=== PATIENT | female | born 1940 | race Caucasian/White ===

== ENCOUNTER 2018-05-14 12:12 | Emergency (ER) | payer MEDICARE ==
[2018-05-14] MEDS ORDERED: ASPIRIN 81 MG TABLET, CHEWABLE PO ONE (13:53)
--- NOTE | 2018-05-14 13:54 | ER Document Report ---
ED Medical Screen (RME) - General Chief Complaint: Chest Pain Stated Complaint: CHEST PAIN Time Seen by Provider: 05/14/18 13:44 Notes: 6 years old female presents today with a history of dementia, chest pain shortness of breath dizziness for the last few days. According to her son. On examination-unremarkable. - Related Data Allergies/Adverse Reactions: No Known Allergies Allergy (Unverified 05/14/18 12:19) Past Medical History - Social History Chew tobacco use (# tins/day): No Frequency of alcohol use: None Drug Abuse: None Renal/ Medical History: Denies: Hx Peritoneal Dialysis Physical Exam - Vital signs Vitals: Temp Pulse Resp BP Pulse Ox 97.3 F 57 L 16 119/43 L 99 05/14/18 12:37 05/14/18 12:37 05/14/18 12:37 05/14/18 12:37 05/14/18 12:37 Course - Vital Signs Vital signs: Temp Pulse Resp BP Pulse Ox 97.3 F 57 L 16 119/43 L 99 05/14/18 12:37 05/14/18 12:37 05/14/18 12:37 05/14/18 12:37 05/14/18 12:37
--- NOTE | 2018-05-14 14:30 | RADIOLOGY REPORT (SQ) ---
EXAM DESCRIPTION: CHEST SINGLE VIEW COMPLETED DATE/TIME: 05/14/2018 2:20 pm REASON FOR STUDY: Chest pain COMPARISON: None. EXAM PARAMETERS: NUMBER OF VIEWS: One view. TECHNIQUE: Single frontal radiographic view of the chest acquired. RADIATION DOSE: NA LIMITATIONS: None. FINDINGS: LUNGS AND PLEURA: No opacities, masses or pneumothorax. No pleural effusion. MEDIASTINUM AND HILAR STRUCTURES: No masses. Contour normal. HEART AND VASCULAR STRUCTURES: Heart normal in size. Normal vasculature. BONES: No acute findings. HARDWARE: None in the chest. OTHER: No other significant finding. IMPRESSION: NO ACUTE RADIOGRAPHIC FINDING IN THE CHEST. TECHNICAL DOCUMENTATION: JOB ID: [id number] [employer]- All Rights Reserved Reading location - IP/workstation name: [email or web address]
[2018-05-14 14:55] LABS: ABSOLUTE LYMPHOCYTES (AUTO) 1.7 10^3/uL (0.5-4.7); ABSOLUTE MONOCYTES (AUTO) 0.8 10^3/uL (0.1-1.4); ABSOLUTE NEUT (AUTO) 7.8 10^3/uL (1.7-8.2); BASOPHILS % (AUTO) 0.3 % (0-2); EOSINOPHILS % (AUTO) 0.4 % (0-6); HEMATOCRIT 41.5 % (36.0-47.0); HEMOGLOBIN 14.2 g/dL (12.0-15.5); LYMPHOCYTES % (AUTO) 16.6 % (13-45); MEAN CORPUSCULAR HEMOGLOBIN 28.7 pg (27.0-33.4); MEAN CORPUSCULAR HGB CONC 34.1 g/dL (32.0-36.0); MEAN CORPUSCULAR VOLUME 84 fl (80-97); MONOCYTES % (AUTO) 7.7 % (3-13); PLATELET COUNT 271 10^3/uL (150-450); RED BLOOD COUNT 4.93 10^6/uL (3.72-5.28); RED CELL DISTRIBUTION WIDTH 13.1 % (11.5-14.0); TOTAL CELLS COUNTED % (AUTO) 100 %; WHITE BLOOD COUNT 10.4 10^3/uL (4.0-10.5)
[2018-05-14 15:14] LABS: ALANINE AMINOTRANSFERASE 24 U/L (9-52); ALBUMIN 4.1 g/dL (3.5-5.0); ALKALINE PHOSPHATASE 124 U/L (38-126); ANION GAP 11 (5-19); ASPARTATE AMINO TRANSFERASE 20 U/L (14-36); BILIRUBIN,DIRECT 0.3 mg/dL (0.0-0.4); BILIRUBIN,TOTAL 0.5 mg/dL (0.2-1.3); BLOOD UREA NITROGEN 17 mg/dL (7-20); CALCIUM 9.8 mg/dL (8.4-10.2); CARBON DIOXIDE 26 mmol/L (22-30); CHLORIDE 102 mmol/L (98-107); CREATINE KINASE 124 U/L (30-135); GLUCOSE 179 mg/dL (75-110); POTASSIUM 4.2 mmol/L (3.6-5.0); SODIUM 138.6 mmol/L (137-145); TOTAL PROTEIN 7.6 g/dL (6.3-8.2)
[2018-05-14 15:24] LABS: CREATINE KINASE MB 0.89 ng/mL (<4.55)
[2018-05-14 15:38] LABS: TROPONIN I < 0.012 ng/mL
--- NOTE | 2018-05-14 19:00 | ER Document Report ---
ED General - General Chief Complaint: Chest Pain Stated Complaint: CHEST PAIN Time Seen by Provider: 05/14/18 13:44 - HPI Patient complains to provider of: Chest pain Notes: Patient with history of dementia comes in today with her family members for complaint of chest pain states chest pain earlier this morning. Patient points to the center of her chest as the area of pain. Patient upon palpation does minutes herself. Patient according to family is has not had any trauma no issues with the heart in the past no stents to bypass surgery. Patient does have a history of diabetes is currently is on metformin also hypertension currently on hydrochlorothiazide and amlodipine. Patient has been compliant with her medications no recent travel no fevers no chills no nausea no vomiting no diarrhea patient currently states that otherwise she is chest pain-free. - Related Data Allergies/Adverse Reactions: No Known Allergies Allergy (Unverified 05/14/18 12:19) Past Medical History - Social History Smoking Status: Never Smoker Chew tobacco use (# tins/day): No Frequency of alcohol use: None Drug Abuse: None Family History: Reviewed & Not Pertinent Patient has suicidal ideation: No Patient has homicidal ideation: No Endocrine Medical History: Reports: Hx Diabetes Mellitus Type 2 Renal/ Medical History: Denies: Hx Peritoneal Dialysis Past Surgical History: Reports: Hx Cholecystectomy Review of Systems - Review of Systems -: Yes ROS unobtainable due to patient's medical condition - Dementia Physical Exam - Vital signs Vitals: Temp Pulse Resp BP Pulse Ox 97.3 F 57 L 16 119/43 L 99 05/14/18 12:37 05/14/18 12:37 05/14/18 12:37 05/14/18 12:37 05/14/18 12:37 Interpretation: Normal - General General appearance: Appears well, Alert - HEENT Head: Normocephalic, Atraumatic Eyes: Normal Pupils: PERRL - Respiratory Respiratory status: No respiratory distress Chest status: Tender - Tenderness palpation of the chest center is reproduced patient's pain. Breath sounds: Normal Chest palpation: Normal - Cardiovascular Rhythm: Regular Heart sounds: Normal auscultation Murmur: No - Abdominal Inspection: Normal Distension: No distension Bowel sounds: Normal Tenderness: Nontender Organomegaly: No organomegaly - Back Back: Normal, Nontender - Extremities General upper extremity: Normal inspection, Nontender, Normal color, Normal ROM , Normal temperature General lower extremity: Normal inspection, Nontender, Normal color, Normal ROM , Normal temperature, Normal weight bearing. No: Gina's sign - Neurological Neuro grossly intact: Yes Cognition: Normal Orientation: AAOx4 [place] Coma Scale Eye Opening: Spontaneous [place] Coma Scale Verbal: Oriented Katherine Coma Scale Motor: Obeys Commands Katherine Coma Scale Total: 15 Speech: Normal Motor strength normal: LUE, RUE, LLE, RLE Sensory: Normal - Psychological Associated symptoms: Normal affect, Normal mood - Skin Skin Temperature: Warm Skin Moisture: Dry Skin Color: Normal Course - Re-evaluation Re-evalutation: 05/14/18 18:56 The patient has atypical chest pain as the patient's chest pain is not suggestive of pulmonary embolus, cardiac ischemia, aortic dissection, or other serious etiology. Given the extremely low risk of these diagnoses further testing and evaluation for these possibilities does not appear to be indicated at this time. The patient has been instructed to return if the symptoms worsen or change in any way. - Vital Signs Vital signs: Temp Pulse Resp BP Pulse Ox 97.3 F 57 L 16 119/43 L 99 05/14/18 12:37 05/14/18 12:37 05/14/18 12:37 05/14/18 12:37 05/14/18 12:37 - Laboratory Result Diagrams: 05/14/18 14:43 05/14/18 14:43 Laboratory results interpreted by me: 05/14/18 14:43 Glucose 179 H Discharge - Discharge Clinical Impression: Chest wall pain Instructions: Chest Wall Pain ([facility]), Chest Pain of Unclear Cause ([facility]) Additional Instructions: At this time patient's physical examination is consistent with chest wall pain. EKG troponins and chest x-ray are all negative for any acute pathology. Recommend patient continue her home medications. He can change amlodipine to be taken at nighttime. Please follow-up with your primary care physician return to ER if any symptoms worsen.
[2018-05-14 19:17] VITALS: BP 133/63
--- NOTE | 2018-05-14 22:26 | EKG REPORT ---
SEVERITY:- ABNORMAL ECG - SINUS RHYTHM NONSPECIFIC T ABNORMALITIES, LATERAL LEADS : Confirmed by: Valerie Doty MD 14-May-2018 22:25:51
== END 2018-05-14 19:20 | disposition home or self-care (01) ==
LOC: ER 12:12
DX: R07.89 Other chest pain (principal); F03.90 Unspecified dementia, unspecified severity, without behavioral disturbance, psychotic disturbance, mood disturbance, and anxiety; I10 Essential (primary) hypertension; E11.9 Type 2 diabetes mellitus without complications; Z79.84 Long term (current) use of oral hypoglycemic drugs
CPT/HCPCS: 93005; 99285; 36415; 82553; 82550; 85025; 80053; 84484; 71045; 93010; A9270